=== PATIENT | female | born 1955 | race Caucasian/White ===

== ENCOUNTER 2018-06-17 19:17 | Emergency (ER) | payer BC ==
[~2018-06-17] VITALS: Ht 162.6 cm; Wt 59.4 kg
--- NOTE | 2018-06-17 19:54 | NUR ---
PT BIBS. C/O "WAS DIAGNOSED WITH PNEUMONIA ON TUESDAY, PRESCRIBED LEVAQUIN, I FEEL WORSE AND AM NOT GETTING ANY BETTER" -SOB, -N/V -DIZZINESS.
[2018-06-17] MEDS ORDERED: KETOROLAC TROMETHAMINE INJ 30 MG/ML VIAL IV ONE (20:30)
[2018-06-17] MEDS ORDERED: ALBUTEROL FS 2.5 MG/0.5 ML VIAL.NEB NEB ONE (20:30)
[2018-06-17] MEDS ORDERED: IV NS 0.9% 500 ML BAG IV ONE (20:30)
[2018-06-17] MEDS ORDERED: KETOROLAC TROMETHAMINE 15 MG/ML VIAL ONE (20:42)
[2018-06-17] MEDS ORDERED: ALBUTEROL FS 2.5 MG/0.5 ML VIAL.NEB ONE (20:43)
[2018-06-17 20:48] LABS: BASOPHILS # (AUTO) 0.1 /CMM (0.0-0.2); BASOPHILS % (AUTO) 0.9 % (0.0-2.0); EOSINOPHILS % (AUTO) 0.4 % (0.0-6.0); HEMATOCRIT 38 % (33-45); HEMOGLOBIN 12.3 g/dL (11.5-14.8); LYMPHOCYTES # (AUTO) 2.7 /CMM (0.8-4.8); LYMPHOCYTES % (AUTO) 29.3 % (20.0-44.0); MEAN CORPUSCULAR HGB CONC 33 g/dl (31.0-36.0); MEAN CORPUSCULAR VOLUME 88 fL (82-100); MONOCYTES # (AUTO) 0.9 /CMM (0.1-1.30); MONOCYTES % (AUTO) 9.7 % (2.0-12.0); NEUTROPHILS # (AUTO) 5.4 /CMM (1.8-8.9); NEUTROPHILS % (AUTO) 59.7 % (43.0-81.0); PLATELET COUNT (AUTO) 332 /CMM (150-450); RED BLOOD CELL COUNT(AUTO) 4.27 MIL/uL (4.0-5.2); WHITE BLOOD COUNT (AUTO) 9.1 K/uL (4.3-11.0)
[2018-06-17 20:59] LABS: CALCIUM, SERUM 9.1 mg/dL (8.5-10.1); CARBON DIOXIDE 30 mmol/L (21-32); CHLORIDE 106 mmol/L (98-107); GLUCOSE 97 mg/dL (74-106); POTASSIUM 4.2 mmol/L (3.5-5.1); SODIUM SERUM 140 mmol/L (136-145); UREA NITROGEN, BLOOD 18 mg/dL (7-18)
[2018-06-17] MEDS ORDERED: ASPIRIN 325 MG TABLET PO ONE (21:00)
[2018-06-17] MEDS ORDERED: ASPIRIN 325 MG TABLET ONE (21:03)
[2018-06-17 21:09] LABS: ALANINE AMINOTRANSFERASE 24 U/L (12-78); ALBUMIN 3.5 g/dL (3.4-5.0); ALKALINE PHOSPHATASE 60 U/L (46-116); ASPARTATE AMINOTRANSFERASE 28 U/L (15-37); BILIRUBIN,DIRECT 0.1 mg/dL (0.0-0.2); BILIRUBIN,TOTAL 0.2 mg/dL (0.2-1.0); LIPASE 224 U/L (73-393); TOTAL PROTEIN, SERUM 7.1 g/dL (6.4-8.2)
[2018-06-17] MEDS ORDERED: CT SWABBABLE VALVE TRANS SET 1 EA INFUS.SET MC ONE (21:10)
[2018-06-17] MEDS ORDERED: IV NS 0.9% 250 ML IV ONE (21:10)
[2018-06-17] MEDS ORDERED: IOHEXOL-350 100 ML VIAL IV ONE (21:10)
[2018-06-17] MEDS ORDERED: FUROSEMIDE 20 MG/2 ML VIAL ONE (22:27)
[2018-06-17] MEDS ORDERED: FUROSEMIDE 20 MG/2 ML VIAL IV ONE (22:30)
[2018-06-17 23:39] VITALS: BP 120/71
== END 2018-06-17 23:40 | disposition home or self-care (01) ==
LOC: ER 19:29
DX: C34.90 Malignant neoplasm of unspecified part of unspecified bronchus or lung (principal); I25.10 Atherosclerotic heart disease of native coronary artery without angina pectoris; E03.9 Hypothyroidism, unspecified; Z98.890 Other specified postprocedural states; Z79.82 Long term (current) use of aspirin
CPT/HCPCS: 36415; 71045; 71275; 80048; 80076; 83690; 83880; 84484; 85025; 87804 ×2; 93005; 94644; 96374; 96375; 99285; A4606; J1885; J1940; J7040; J7050; Q9967; 87400